=== PATIENT | female | born 1965 | race Caucasian/White ===

== ENCOUNTER 2017-10-05 07:30 | Inpatient (IN) | payer MEDICARE, MEDICAID ==
[~2017-10-05 07:30] MED LIST: Acetaminophen 500 MG Tab PO ONE; Albuterol/Ipratropium 3.0-0.5 MG/3 ML Neb Soln NEB ONE; Dextrose 5%-Lactated Ringers 1,000 ML IV SCH; ceFAZolin 2 GM in Sodium Chloride 0.9% 100 ML IV ONE; ceFAZolin 2 GM in Sodium Chloride 0.9% 50 ML IV ONE
[2017-10-13] MEDS ORDERED: ceFAZolin 2 GM in Premix Bag 1 BAG IV ONE (06:52)
[2017-10-13] MEDS ORDERED: Acetaminophen 1,000 MG in Premix Bag 1 BAG IV ONE (06:53)
[2017-10-13] MEDS ORDERED: Acetaminophen 500 MG Tab PO ONE (06:56)
[2017-10-13] MEDS ORDERED: Albuterol/Ipratropium 3.0-0.5 MG/3 ML Neb Soln NEB ONE (07:00)
[2017-10-13] MEDS ORDERED: Pregabalin 100 MG Cap PO SCH (07:00)
[2017-10-13] MEDS: Dextrose 5%-Lactated Ringers 1,000 ML IV SCH ×3 (07:56→22:37)
[2017-10-13] MEDS ORDERED: fentaNYL 250 MCG/5 ML SDV ONE ×2 (08:47→09:21)
[2017-10-13] MEDS ORDERED: Neostigmine Methylsulfate 1 MG/ML 5 ML Syringe ONE (08:48)
[2017-10-13] MEDS ORDERED: Propofol 200 MG/20 ML SDV ONE (08:48)
[2017-10-13] MEDS ORDERED: Rocuronium 50 MG/5 ML Vial ONE (08:48)
[2017-10-13] MEDS ORDERED: Ondansetron 4 MG/2 ML SDV ONE (08:48)
[2017-10-13] MEDS ORDERED: Dexamethasone 4 MG/ML SDV ONE (08:48)
[2017-10-13] MEDS ORDERED: Glycopyrrolate 0.2 MG/ML 5 ML MDV ONE (08:48)
[2017-10-13] MEDS ORDERED: Linezolid 200 MG/100 ML Bag IRR ONE (09:23)
[2017-10-13] MEDS ORDERED: Ketorolac 60 MG/2 ML SDV ONE (10:43)
[2017-10-13] MEDS ORDERED: Acetaminophen/oxyCODONE 325-5 MG Tab PO PRN (11:18)
[2017-10-13] MEDS ORDERED: Albuterol 8 GM Inhaler INH PRN (11:52)
[2017-10-13] MEDS ORDERED: Ondansetron 4 MG/2 ML SDV IVPUSH PRN (11:53)
[2017-10-13] MEDS ORDERED: Naloxone 0.4 MG/ML SDV IV PRN (11:57)
[2017-10-13] MEDS ORDERED: HYDROmorphone/Normal Saline 15 MG/30 ML PCA IV PRN (11:57)
[2017-10-13] MEDS: Sertraline 50 MG Tab PO SCH (12:42)
[2017-10-13] MEDS: Anastrozole 1 MG Tab PO SCH (12:43)
[2017-10-13] MEDS: tiZANidine 4 MG Tab PO SCH ×2 (13:35→21:02)
[2017-10-13] MEDS: ceFAZolin 2 GM in Premix Bag 1 BAG IV SCH ×2 (14:30→21:02)
[2017-10-13] MEDS ORDERED: Bisacodyl 5 MG Tab PO SCH (21:00)
[2017-10-13] MEDS: Formoterol/Mometasone 200-5 MCG 8.8 GM Inhaler IH SCH (21:02)
[2017-10-13] MEDS: Montelukast 10 MG Tab PO SCH (21:02)
[2017-10-13] MEDS: Pregabalin 100 MG Cap PO SCH (21:02)
[2017-10-14] MEDS: ceFAZolin 2 GM in Premix Bag 1 BAG IV SCH (05:40)
[2017-10-14] MEDS ORDERED: Fluticasone Propionate Nasal Spray 16 GM Bottle NAS PRN ×2 (07:20→07:52)
[2017-10-14] MEDS ORDERED: Albuterol 8 GM Inhaler INH PRN (07:20)
[2017-10-14] MEDS ORDERED: Triamcinolone Acetonide 0.1% Crm 15 GM Tube TOP PRN (07:20)
[2017-10-14] MEDS ORDERED: diphenhydrAMINE 25 MG Cap PO PRN (07:20)
[2017-10-14] MEDS ORDERED: Prochlorperazine 10 MG Tab PO PRN (07:20)
[2017-10-14] MEDS ORDERED: Hydrocortisone 1% Crm 30 GM Tube TOP PRN (07:20)
[2017-10-14] MEDS: Formoterol/Mometasone 200-5 MCG 8.8 GM Inhaler IH SCH ×2 (07:34→20:07)
[2017-10-14] MEDS: Aspirin 81 MG Tab.EC PO SCH (08:21)
[2017-10-14] MEDS: tiZANidine 4 MG Tab PO SCH ×3 (08:21→20:10)
[2017-10-14] MEDS: HYDROmorphone 2 MG Tab PO PRN ×4 (08:21→23:22)
[2017-10-14] MEDS: Anastrozole 1 MG Tab PO SCH (08:21)
[2017-10-14] MEDS: Acetaminophen 500 MG Tab PO SCH ×3 (08:25→20:09)
[2017-10-14] MEDS: Cholecalciferol (Vitamin D3) 1,000 Unit Tab PO SCH ×2 (08:25→20:10)
[2017-10-14] MEDS: Multivitamins with Iron/Calcium/Folic Acid/Minerals Tab PO SCH (08:26)
[2017-10-14] MEDS: Sertraline 50 MG Tab PO SCH (08:28)
[2017-10-14] MEDS: Pregabalin 100 MG Cap PO SCH ×3 (08:30→21:31)
--- NOTE | 2017-10-14 08:46 | PN ---
DATE OF SERVICE: 10/14/2017 SUBJECTIVE: Milly is postop day #1. She did have difficulty with pain control. She was started on a LITERACY TEACHER, and she reported dizziness and lightheadedness when getting up. She also reports having generalized itching, which is not new for her and would like her Benadryl reordered as well as her other home medications. Last BM was several days ago. She routinely takes Dulcolax tabs and MiraLAX 17 g. Vital signs have been stable. LEX drain on the right put out 45 mL of a light red drainage and LEX drain on the left put out 40 mL of a light pink drainage. REVIEW OF SYSTEMS: Remainder of review of systems negative for any pertinent positives and negatives. OBJECTIVE: GENERAL: Milly Nagy is a 52-year-old female. VITAL SIGNS: TPR is 98.1, 70, 18, blood pressure 115/69. HEENT: Negative. NECK: Supple. HEART: Regular rate and rhythm. LUNGS: Clear. Dressings were removed. There is no hematoma noted at staple line. She does have quite a bit in the way of axillary swelling in the left. She states that is normal and she normally wears compression sleeves bilaterally. ABDOMEN: Negative. EXTREMITIES: Without peripheral edema. ASSESSMENT: Resection and revision of bilateral painful deformed mastectomy scars, 28 cm on the right and 28 cm on the left. PLAN: 1. Change the patient's status to inpatient for pain control. 2. Discontinue LITERACY TEACHER. 3. Discontinue Percocet. 4. Discontinue continuous pulse ox. 5. Dilaudid 2 mg 1 to 2 every 4 hours p.r.n. pain; aspirin 81 mg p.o. daily; Lipitor 40 mg at bedtime; Dulcolax 5 mg tablets, take 2 b.i.d.; vitamin D3 1000 international units 1 p.o. b.i.d.; calcium with vitamin D3, B6, FA, B12 one b.i.d.; Benadryl 25 mg take 25 to 50 p.o. q.i.d. p.r.n. itching; Flonase 9.9 mL 2 sprays in each nostril daily p.r.n.; Advair 500/50 one puff inhalation b.i.d.; hydrocortisone 1% cream one applicator topical b.i.d. p.r.n. affected area; Singulair 10 mg p.o. daily; multivitamin one p.o. daily; MiraLAX 17 g p.o. daily p.r.n., give 85 mg today; Lyrica 100 mg p.o. t.i.d.; Compazine 10 mg q.6 hours p.r.n.; sertraline/Zoloft 150 mg p.o. daily; Tizanidine 8 mg p.o. t.i.d.; and triamcinolone acetonide 0.1% cream one topical t.i.d. 6. Good pulmonary toilet. 7. Dressing is already off. She may shower. 8. We will evaluate p.r.n. or in a.m. Elivra Rock PA-C /[id number]
[2017-10-14] MEDS ORDERED: Montelukast 10 MG Tab PO SCH (09:00)
[2017-10-14] MEDS ORDERED: SERTRALINE 150 MG PO SCH (09:00)
[2017-10-14] MEDS ORDERED: Polyethylene Glycol 3350 Powder 17 GM Packet PO ONE (09:00)
[2017-10-14] MEDS ORDERED: tiZANidine 4 MG Tab PO SCH (09:00)
[2017-10-14] MEDS ORDERED: Aspirin 81 MG Tab.EC PO SCH (09:00)
[2017-10-14] MEDS ORDERED: Pregabalin 50 MG Cap PO SCH (09:00)
[2017-10-14] MEDS ORDERED: Non-Formulary Medication 1 Each (Fluticasone/Salmeterol [Advair 500-50] 1 PUFF) INH SCH (09:00)
[2017-10-14] MEDS: Dextrose 5%-Lactated Ringers 1,000 ML IV SCH (09:24)
[2017-10-14] MEDS: [UNRECOGNIZED DRUG - REMARK] PO SCH ×2 (11:25→20:12)
[2017-10-14] MEDS ORDERED: Pregabalin 100 MG Cap PO SCH (14:00)
[2017-10-14] MEDS: hydrOXYzine HCl 100 MG/2 ML SDV IM PRN ×2 (15:55→21:32)
[2017-10-14] MEDS: Montelukast 10 MG Tab PO SCH (20:10)
[2017-10-14] MEDS ORDERED: atorvaSTATin 20 MG Tab PO SCH (21:00)
[2017-10-15] MEDS: HYDROmorphone 2 MG Tab PO PRN ×2 (03:25→07:29)
[2017-10-15] MEDS: Formoterol/Mometasone 200-5 MCG 8.8 GM Inhaler IH SCH (07:43)
[2017-10-15] MEDS: Anastrozole 1 MG Tab PO SCH (08:05)
[2017-10-15] MEDS: Multivitamins with Iron/Calcium/Folic Acid/Minerals Tab PO SCH (08:06)
[2017-10-15] MEDS: tiZANidine 4 MG Tab PO SCH (08:06)
[2017-10-15] MEDS: Acetaminophen 500 MG Tab PO SCH (08:06)
[2017-10-15] MEDS: Aspirin 81 MG Tab.EC PO SCH (08:06)
[2017-10-15] MEDS: Cholecalciferol (Vitamin D3) 1,000 Unit Tab PO SCH (08:06)
[2017-10-15] MEDS: Sertraline 50 MG Tab PO SCH (08:06)
[2017-10-15] MEDS: [UNRECOGNIZED DRUG - REMARK] PO SCH (08:07)
[2017-10-15] MEDS: Pregabalin 100 MG Cap PO SCH (08:14)
--- NOTE | 2017-10-16 03:34 | DISCH ---
ADMISSION DIAGNOSES: Scar tissue, bilateral mastectomy incisions, left breast cancer, asthma, chronic obstructive pulmonary disease, dyslipidemia, opiate dependence, palpitations, spinal stenosis, anxiety, depression, and allergic rhinitis. DISCHARGE DIAGNOSES: Resection revision of bilateral painful deformed mastectomy scars bilaterally both 28 cm. HISTORY: Milly Nagy is a 52-year-old female who had bilateral mastectomy for left breast cancer. She developed painful mastectomy scars. After preoperative evaluation and discussion of possible risks and possible complications, she wished to proceed with surgical procedure. HOSPITAL COURSE: Milly had her surgery on 10/12/2017. She had no operative complications. On postop day #1, she was changed from the TAR LEVELER to oral pain medication. Her activity was good. Vital signs were stable. Pain was well-managed and she was able to be discharged to home without any complications. PHYSICAL EXAMINATION: GENERAL: Milly Nagy is a pleasant 52-year-old female alert and orientated. VITAL SIGNS: Height is 5 feet, 7 inches. Weight is 209 pounds. TPR is 96.3, 77, 16, blood pressure 142/85. HEENT: Negative. NECK: Supple. HEART: Regular rate and rhythm. LUNGS: Clear. BREASTS: Both incision sites look good. Sally intact. There is a little bit more swelling from previous lymphedema in the left axilla area. LEX drains are intact and draining a light red drainage of 65 on the right and 40 mL on the left. ABDOMEN: Soft, nontender. EXTREMITIES: Without peripheral edema. DISPOSITION: Discharged to home. CONDITION: Stable and improving. FOLLOWUP: Followup appointment with Murray Hua MD at [facility] on 10/21/2017 at 9:30 a.m. DISCHARGE MEDICATIONS: New prescriptions: 1. Dilaudid 2 mg 1 to 2 every 4 hours p.r.n. pain #50. 2. Tylenol Arthritis 1300 mg 3 times a day. 3. Ventolin inhaler 1 puff every 4 hours p.r.n. shortness of breath. 4. Arimidex 1 mg oral daily. 5. Aspirin 81 mg oral daily. 6. Dulcolax 10 mg oral twice daily. 7. Calcium with vitamin D one twice daily. 8. Vitamin D3 1000 international units daily. 9. Flonase 2 sprays in each nostril daily for allergies. 10.Advair 500/50 one puff twice daily. 11.Hydrocortisone cream applied twice daily as needed for itching. 12.Singulair 10 mg oral daily. 13.Multivitamin 1 tablet daily. 14.MiraLAX 17 g oral daily. 15.Lyrica 100 mg oral 3 times a day. 16.Compazine 10 mg oral every 6 hours p.r.n. nausea. 17.Sertraline 150 mg oral daily. 18.Triamcinolone cream 0.1% cream apply 3 times a day for rash. 19.Lipitor 40 mg at bedtime. 20.Benadryl 25 to 50 mg oral 4 times a day. 21.Tizanidine 8 mg oral 3 times daily. DISCHARGE DIET: Usual diet as tolerated. Drink 8 to 10 glasses of water a day. ACTIVITY: No lifting greater than 10 pounds for 6 weeks[address]riving, do not drive on pain medication. May shower. Keep site clean and dry. Notify provider if any fever, increased pain, swelling, redness, drainage, nausea, or vomiting. SPECIAL INSTRUCTIONS: 1. Use incentive spirometer 10 times every hour while awake for 1 week. 2. Strip, empty, measure, and record LEX drains 4 times a day and when half-full bring record of LEX drainage to clinic appointment.
--- NOTE | 2017-10-18 15:00 | OR ---
DATE OF PROCEDURE: 10/13/2017 PREOPERATIVE DIAGNOSES: 1. Bilateral painful deformed mastectomy incisions. 2. Mass effect over central aspect of left mastectomy incision. POSTOPERATIVE DIAGNOSES: 1. Bilateral painful deformed mastectomy incisions. 2. Mass effect over central aspect of left mastectomy incision. OPERATIVE PROCEDURE: 1. Resection of painful deformed mastectomy incision of right chest wall with layered closure (02043, [id number]). 2. Resection of painful deformed mastectomy scar including underlying mass effect involving the skin and subcutaneous tissue and musculature, left mastectomy incision (05338). ANESTHESIA: General. FPGA DESIGN ENGINEER: Elvira Rock PA-C. INDICATIONS FOR PROCEDURE: This is a 52-year-old status post bilateral mastectomies. The mastectomy on the right side was prophylactic. On the left side, the patient had local regionally advanced disease and received postop chemotherapy and radiation treatment. Both incisions are quite deformed and painful associated with contractures on the left side in the central aspect of this area. There was also a mass effect and excision of this is to be obtained to rule out any recurrent disease as well as alleviating problems with the painful deformed incision. Potential risks of procedure including bleeding, infection, further cosmetic problems over time were all reviewed, and the patient wishes to proceed. DETAILS OF PROCEDURE: The patient was taken to the operating room and placed in a supine position. After general endotracheal anesthesia was induced, the chest wall and axilla were prepped and draped bilaterally. Beginning on the right side, a transversely oriented elliptical incision incorporating the underlying incision was made. This was done where there would be adequate subcutaneous tissue for closure. This was carried down through the skin and subcutaneous tissue, then reflected off the pectoralis major muscle for the length of incision. Once hemostasis was obtained, a 7-Hungarian [place]-Nichole drain was placed through a stab wound along the medial aspect of the incision and the incision then closed with layers of 3-0 and 4-0 Vicryl stitch deep and nicanor for the skin. This incision and closure measured at 28 cm in length. Attention was then taken to the left side. A similar elliptical incision was made. This was oriented somewhat differently and higher than the right side based on the location of the areas of the traction. This was carried down through the skin and subcutaneous tissue and included removal of the patient's tattoo which was located medially along the chest wall as the wound reflected off the soft pectoralis major fascia, the area of the central masslike effect which appeared to be contracted fibrotic tissue likely related to both scarring and radiation treatment the patient received postoperatively was excised. This measured around 15 cm in length with the total incision being 28 cm similar to the right side. This excision included some of the attached underlying pectoralis major muscle and the specimen was then delivered from the field. Closure was then as per the right side with drain also being placed. The patient was taken to the recovery room in satisfactory condition. Physician orthodontic technician assistant, Elvira Rock, played an essential role in assisting in this case, helping to position the patient, retract structures as needed, as well as suturing and cutting sutures when indicated. Her presence improved the patient safety and decreased the operative time. Murray Hua MD /[id number]
== END 2017-10-15 08:30 | disposition home or self-care (01) | DRG 585 ==
LOC: EDSTATUS 07:30 → JP.SDS 10-13 05:37 → JP.SDSSCHI 10-13 05:37 → JP.2SS 10-13 10:45
PROVIDERS: ADMIT Surgery; ATTEND Surgery
PROC: 0HBVXZZ (ICD-10-PCS; principal; 2017-10-13)
DX: L90.5 Scar conditions and fibrosis of skin (principal); Z85.3 Personal history of malignant neoplasm of breast; Z92.21 Personal history of antineoplastic chemotherapy; Z90.13 Acquired absence of bilateral breasts and nipples; F17.210 Nicotine dependence, cigarettes, uncomplicated; G89.29 Other chronic pain; J44.9 Chronic obstructive pulmonary disease, unspecified; M54.9 Dorsalgia, unspecified; F11.21 Opioid dependence, in remission; F41.9 Anxiety disorder, unspecified; F32.9 Major depressive disorder, single episode, unspecified; K59.00 Constipation, unspecified; E78.5 Hyperlipidemia, unspecified; Z79.82 Long term (current) use of aspirin; M48.00 Spinal stenosis, site unspecified; Z92.3 Personal history of irradiation
CPT/HCPCS: 88304; 94640-76; 94762; A9270-GY; J0690; J1100; J1170; J1885; J2020; J2405; J2704; J2710; J3010; J3410; J7042; J7620

== ENCOUNTER 2017-10-17 10:25 | Emergency (ER) | payer MEDICARE, MEDICAID ==
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
== END 2017-10-17 11:35 | disposition home or self-care (01) ==
LOC: JP.ED 10:25
DX: Z48.01 Encounter for change or removal of surgical wound dressing (principal); F17.210 Nicotine dependence, cigarettes, uncomplicated; J44.9 Chronic obstructive pulmonary disease, unspecified; E78.00 Pure hypercholesterolemia, unspecified; Z79.899 Other long term (current) drug therapy; Z79.82 Long term (current) use of aspirin; Z91.09 Other allergy status, other than to drugs and biological substances
CPT/HCPCS: 99282; 99283

== ENCOUNTER 2017-11-20 10:15 | Inpatient (IN) | payer MEDICARE, MEDICAID ==
[2017-11-20] MEDS ORDERED: Bupivacaine 0.5% 50 ML MDV ONE (10:46)
[2017-11-20] MEDS ORDERED: Lidocaine 1% with EPINEPHrine 1:100,000 50 ML MDV ONE (10:46)
[2017-11-20] MEDS: Dextrose 5%-Lactated Ringers 1,000 ML IV SCH ×2 (11:26→20:43)
[2017-11-20] MEDS ORDERED: fentaNYL 250 MCG/5 ML SDV ONE (11:34)
[2017-11-20] MEDS ORDERED: Midazolam 1 MG/ML 2 ML SDV ONE (11:34)
[2017-11-20] MEDS ORDERED: Rocuronium 50 MG/5 ML Vial ONE (11:35)
[2017-11-20] MEDS ORDERED: Dexamethasone 4 MG/ML SDV ONE (11:35)
[2017-11-20] MEDS ORDERED: Succinylcholine 200 MG/10 ML MDV ONE (11:35)
[2017-11-20] MEDS ORDERED: Ondansetron 4 MG/2 ML SDV ONE (11:35)
[2017-11-20] MEDS ORDERED: Propofol 200 MG/20 ML SDV ONE (11:35)
[2017-11-20] MEDS ORDERED: Clindamycin Phosphate 900 MG in Sodium Chloride 0.9% 100 ML IV ONE (12:00)
[2017-11-20] MEDS ORDERED: Albuterol/Ipratropium 3.0-0.5 MG/3 ML Neb Soln NEB ONE (12:00)
[2017-11-20] MEDS ORDERED: Lidocaine 4% Top Soln LTA 4 ML SYRINGE ONE (12:03)
[2017-11-20] MEDS ORDERED: Naloxone 0.4 MG/ML SDV IV PRN (12:28)
[2017-11-20] MEDS ORDERED: Glycopyrrolate 0.2 MG/ML 5 ML MDV ONE (12:29)
[2017-11-20] MEDS ORDERED: Neostigmine Methylsulfate 1 MG/ML 5 ML Syringe ONE (12:29)
[2017-11-20] MEDS ORDERED: Albuterol/Ipratropium 3.0-0.5 MG/3 ML Neb Soln INH PRN (14:10)
[2017-11-20] MEDS ORDERED: Ondansetron 4 MG/2 ML SDV IVPUSH PRN (14:11)
[2017-11-20] MEDS: HYDROmorphone/Normal Saline 15 MG/30 ML PCA IV PRN (14:17)
[2017-11-20] MEDS: Pregabalin 100 MG Cap PO SCH ×2 (15:23→20:58)
[2017-11-20] MEDS: tiZANidine 4 MG Tab PO SCH ×2 (15:23→20:58)
[2017-11-20] MEDS: Sertraline 50 MG Tab PO SCH (15:24)
[2017-11-20] MEDS: Albuterol/Ipratropium 3.0-0.5 MG/3 ML Neb Soln INH SCH ×2 (15:49→20:58)
[2017-11-20] MEDS ORDERED: Polyethylene Glycol 3350 Powder 17 GM Packet PO PRN (16:12)
[2017-11-20] MEDS: Bisacodyl 5 MG Tab PO PRN (17:09)
[2017-11-20] MEDS: Clindamycin Phosphate 900 MG in Sodium Chloride 0.9% 100 ML IV SCH (20:57)
[2017-11-20] MEDS: Formoterol/Mometasone 200-5 MCG 8.8 GM Inhaler IH SCH (21:00)
[2017-11-20] MEDS: Montelukast 10 MG Tab PO SCH (21:02)
[2017-11-20] MEDS: atorvaSTATin 20 MG Tab PO SCH (21:02)
[2017-11-21] MEDS: HYDROmorphone/Normal Saline 15 MG/30 ML PCA IV PRN (04:14)
[2017-11-21] MEDS: Clindamycin Phosphate 900 MG in Sodium Chloride 0.9% 100 ML IV SCH ×3 (04:18→20:27)
[2017-11-21] MEDS: Dextrose 5%-Lactated Ringers 1,000 ML IV SCH (07:50)
[2017-11-21] MEDS: Pregabalin 100 MG Cap PO SCH ×3 (09:21→20:28)
[2017-11-21] MEDS: Anastrozole 1 MG Tab PO SCH (09:27)
[2017-11-21] MEDS: Sertraline 50 MG Tab PO SCH (09:27)
[2017-11-21] MEDS: tiZANidine 4 MG Tab PO SCH ×3 (09:27→20:28)
[2017-11-21] MEDS: Aspirin 81 MG Tab.EC PO SCH (09:30)
--- NOTE | 2017-11-21 09:34 | PN ---
DATE OF SERVICE: 11/21/2017 SUBJECTIVE: Milly is sitting up in the chair. Her pain is controlled with her CASE ADVOCATE. Her dressings are dry and intact. She has no questions or concerns. OBJECTIVE: GENERAL: Milly Nagy is a pleasant 52-year-old female. VITAL SIGNS: TPR is 98, 76, 16, and blood pressure 130/77. HEENT: Negative. NECK: Supple. HEART: Regular rate and rhythm. LUNGS: Clear. Dressing, left axilla area is dry and intact. EXTREMITIES: Without peripheral edema. ASSESSMENT: Drainage of left chest wound under intraoperative ultrasound. Operation date, 11/20/2017. PLAN: 1. Dressing off, march shower. 2. Dressing changes to be b.i.d. Pack open wound with dry 4x4s, place ABD over the top of the 4x4 packing, then secure with tape. This is to be done b.i.d. 3. Discontinue CASE ADVOCATE. 4. Discontinue continuous pulse ox. 5. Percocet 5/325 mg 1 to 2 q.4 hours p.r.n. pain. 6. Decrease IV to keep vein open. 7. We will evaluate p.r.n. or in a.m. 8. Home Health care will be set up when the patient goes home, for b.i.d. wound packing. Elvira Rock PA-C /[id number]
[2017-11-21] MEDS: Bisacodyl 5 MG Tab PO PRN (09:38)
[2017-11-21] MEDS: Albuterol/Ipratropium 3.0-0.5 MG/3 ML Neb Soln INH SCH ×4 (10:53→20:27)
[2017-11-21] MEDS ORDERED: Dextrose 5%-Lactated Ringers 1,000 ML IV SCH (11:30)
[2017-11-21] MEDS: Acetaminophen/oxyCODONE 325-5 MG Tab PO PRN ×3 (11:52→20:27)
[2017-11-21] MEDS: Formoterol/Mometasone 200-5 MCG 8.8 GM Inhaler IH SCH ×2 (18:53→20:26)
[2017-11-21] MEDS: Montelukast 10 MG Tab PO SCH (20:28)
[2017-11-21] MEDS: atorvaSTATin 20 MG Tab PO SCH (20:28)
[2017-11-22] MEDS: Acetaminophen/oxyCODONE 325-5 MG Tab PO PRN ×6 (01:37→22:47)
[2017-11-22] MEDS: Clindamycin Phosphate 900 MG in Sodium Chloride 0.9% 100 ML IV SCH ×3 (03:43→20:55)
[2017-11-22] MEDS: Formoterol/Mometasone 200-5 MCG 8.8 GM Inhaler IH SCH ×2 (07:31→20:55)
[2017-11-22] MEDS: Albuterol/Ipratropium 3.0-0.5 MG/3 ML Neb Soln INH SCH ×4 (07:31→20:56)
[2017-11-22] MEDS: Pregabalin 100 MG Cap PO SCH ×3 (08:33→20:56)
[2017-11-22] MEDS: tiZANidine 4 MG Tab PO SCH ×3 (08:33→20:56)
[2017-11-22] MEDS: Sertraline 50 MG Tab PO SCH (08:33)
[2017-11-22] MEDS: Aspirin 81 MG Tab.EC PO SCH (08:33)
[2017-11-22] MEDS: Anastrozole 1 MG Tab PO SCH (08:34)
--- NOTE | 2017-11-22 10:48 | PN ---
DATE OF SERVICE: 11/22/2017 SUBJECTIVE: Milly is postop day #2, her pain is controlled. She has had 4 loose stools. Nursing staff is checking a C. diff. REVIEW OF SYSTEMS: Remainder of review of systems is negative for any pertinent positives and negatives. OBJECTIVE: GENERAL: Milly Nagy is a 52-year-old female. VITAL SIGNS: TPR is 97.7, 73, 16, blood pressure 148/72. HEENT: Negative. NECK: Supple. HEART: Regular rate and rhythm. LUNGS: Clear. Left axilla dressing is dry and intact. Lungs reveal rhonchi with coughing, bases are clear, occasional wheezing. EXTREMITIES: Without peripheral edema. ASSESSMENT: Drainage of left chest wound under intraoperative ultrasound. Operation date 11/20/2014. PLAN: 1. We will plan discharge in a.m. 2. The patient is requesting home health care to help with dressing changes. 3. Nursing staff will instruct the patient and evaluate if the patient is able to do the dressing changes herself. We will evaluate p.r.n. or in a.m. Elvira Rock PA-C /[id number]
[2017-11-22] MEDS: atorvaSTATin 20 MG Tab PO SCH (20:56)
[2017-11-22] MEDS: Montelukast 10 MG Tab PO SCH (20:56)
[2017-11-23] MEDS: Acetaminophen/oxyCODONE 325-5 MG Tab PO PRN ×2 (03:31→07:45)
[2017-11-23] MEDS: Clindamycin Phosphate 900 MG in Sodium Chloride 0.9% 100 ML IV SCH (03:32)
[2017-11-23] MEDS: Formoterol/Mometasone 200-5 MCG 8.8 GM Inhaler IH SCH (08:03)
[2017-11-23] MEDS: Albuterol/Ipratropium 3.0-0.5 MG/3 ML Neb Soln INH SCH (08:04)
[2017-11-23] MEDS: Pregabalin 100 MG Cap PO SCH (08:11)
[2017-11-23] MEDS: Aspirin 81 MG Tab.EC PO SCH (08:12)
[2017-11-23] MEDS: Sertraline 50 MG Tab PO SCH (08:12)
[2017-11-23] MEDS: tiZANidine 4 MG Tab PO SCH (08:12)
[2017-11-23] MEDS: Anastrozole 1 MG Tab PO SCH (08:13)
--- NOTE | 2017-11-24 10:39 | OR ---
DATE OF PROCEDURE: 11/20/2017 PREOPERATIVE DIAGNOSIS: Persistent inflammation around chest wall seroma, status post chest wall radiotherapy. POSTOPERATIVE DIAGNOSIS: Persistent inflammation around chest wall seroma, status post chest wall radiotherapy. OPERATIVE PROCEDURE: Drainage of area of persistent inflammation and fluid collection over chest incision within bed of radiated tissue (). ANESTHESIA: General. INDICATIONS FOR PROCEDURE: This is a 52-year-old status post revision of a mastectomy incision. This was initially done bilaterally. On the right side, the patient had no postoperative problems. She has had persistent redness and inflammation in the chest wall on the left side. This side had received preoperative radiotherapy following her breast cancer diagnosis. The plan is to proceed with drainage of this area, as it would appear that most likely there is some undrained colonized fluid within the area contributing to the ongoing inflammation. Potential risks including bleeding, infection, likelihood of having significant open wound at the conclusion of the procedure were reviewed, and the patient wishes to proceed. DETAILS OF PROCEDURE: The patient was taken to the operating room and placed in supine position. After general endotracheal anesthesia was induced, the left arm was placed out on an arm-board. The area of the incision was then evaluated by ultrasound, and there did appear to be some patchy areas of fluid along the central two thirds of the incision. The area was then prepped and draped, and the area was then opened up over that region. There was some necrotic fibrinous material, which was more or less evacuated, along with the fluid. Cultures were obtained, and the plane of this was directly over the musculature, i.e. in a subfascial location, and the wound was then packed open with iodoform gauze. This would appear to be colonized wound, rather than an overt infection, based on the patient's overall clinical appearance, and upon completion of the drainage, I suspect this will likely heal satisfactorily by secondary approach, although likely somewhat slowly, due to the radiated nature of the underlying tissue. After dressing was applied, the patient was taken to the recovery room in satisfactory condition. Murray Hua MD /[id number]
--- NOTE | 2017-11-24 11:08 | DISCH ---
ADMISSION DIAGNOSES: Persistent inflammation around chest wall seroma, status post chest wall revision; left breast cancer; chronic obstructive pulmonary disease; asthma; chronic neck spasm; dyslipidemia; opioid dependence; status post radiation; spinal stenosis; anxiety and depression. DISCHARGE DIAGNOSIS: Drainage of persistent inflammation, chest wall seroma. Date of surgery, 11/20/2017. HISTORY: Milly Nagy had a scar revision of her mastectomy incisions following left breast cancer. She developed a seroma under the left incision. After preoperative evaluation and discussion of the possible risks and possible complications, she wished to proceed with surgical procedure. HOSPITAL COURSE: Milly had her surgery on 11/20/2017. She had no operative complications. On postop day #1, she was changed to oral pain medication. Her dressings were changed twice a day. She remained afebrile. Activity was good. Vital signs stable. Incision looks good, and pain was controlled. She was ready to be discharged on 11/23/2017. PHYSICAL EXAMINATION: GENERAL: Milly Nagy is a 52-year-old female. VITAL SIGNS: Height is 5 feet 6 inches, weight is 201 pounds. TPR is 98.5, 89, 18. Blood pressure 156/84. HEENT: Negative. NECK: Supple. HEART: Regular rate and rhythm. LUNGS: Clear. Left chest wall incision was unpacked, looks good, granulation occurring, no abnormal drainage or redness. EXTREMITIES: Without peripheral edema. DISPOSITION: Discharged to home. CONDITION: Stable and improving. FOLLOWUP APPOINTMENT: On 11/25/2017 at 11:00 a.m. with Murray Hua M.D., at [facility]. HOME MEDICATIONS: Percocet 5/325 mg 1 to 2 q.4 hours p.r.n. pain, #50, and Bactrim DS 1 b.i.d., #20. She is to resume her home medications: Tylenol Arthritis 1300 mg 3 times a day p.r.n., needs to taper this so she does not get too much Tylenol in a 24-hour period; Ventolin inhaler 1 puff every 4 hours p.r.n. shortness of breath; Arimidex 1 mg oral daily; aspirin 81 mg daily; Dulcolax 10 mg twice daily; calcium carbonate 1 twice daily; vitamin D3 1000 international units twice daily; Flonase 2 sprays in each nostril daily; Advair 1 puff inhalation twice a day; hydrocortisone 1% cream twice daily; Singulair 10 mg oral at bedtime; multivitamin 1 at bedtime; MiraLax 17 g oral daily; Lyrica 100 mg oral 3 times a day; triamcinolone acetonide 0.1% cream 1 applicator 3 times a day; Lipitor 40 mg oral at bedtime; Benadryl 25 to 50 mg 4 times a day as needed for facial swelling and itching; and tizanidine 8 mg oral 3 times a day. Discontinue taking Dilaudid. DIET: Usual diet as tolerated, regular. DISCHARGE INSTRUCTIONS: Notify provider if fever, increased pain, swelling, or redness. Keep site clean and dry. Change dressing on the left chest twice a day when you are able, right now have home healthcare nurse change it once a day right after you shower. Use incentive spirometer 10 times every hour while awake.
== END 2017-11-23 10:00 | disposition home health service (06) | DRG 920 ==
LOC: EDSTATUS 10:15 → JP.SDS 11:01 → JP.MS 11:01 → JP.2SS 12:48
PROVIDERS: ADMIT Surgery; ATTEND Surgery
PROC: 0W9800Z Drainage of Chest Wall with Drainage Device, Open Approach (ICD-10-PCS; principal; 2017-11-20)
DX: L76.34 Postprocedural seroma of skin and subcutaneous tissue following other procedure (principal); F11.20 Opioid dependence, uncomplicated; Z92.3 Personal history of irradiation; L08.89 Other specified local infections of the skin and subcutaneous tissue; Z85.3 Personal history of malignant neoplasm of breast; R19.7 Diarrhea, unspecified; F32.9 Major depressive disorder, single episode, unspecified; F41.9 Anxiety disorder, unspecified; Z79.82 Long term (current) use of aspirin
CPT/HCPCS: 36415; 76998; 80053; 83735; 84100; 85027; 87070; 87075; 87077; 87186; 87205; 94640; 94640-76; 94762; A9270-GY; J0330; J1100; J1170; J2250; J2405; J2704; J2710; J3010; J7030; J7042; J7620; S0077

== ENCOUNTER 2017-12-14 14:40 | Emergency (ER) | payer MEDICARE, MEDICAID ==
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
== END 2017-12-14 17:13 | disposition home or self-care (01) ==
LOC: JP.ED 14:40
DX: D72.829 Elevated white blood cell count, unspecified (principal); J44.9 Chronic obstructive pulmonary disease, unspecified; E78.00 Pure hypercholesterolemia, unspecified; F32.9 Major depressive disorder, single episode, unspecified; F41.9 Anxiety disorder, unspecified; F17.210 Nicotine dependence, cigarettes, uncomplicated; Z91.09 Other allergy status, other than to drugs and biological substances; Z79.82 Long term (current) use of aspirin; Z79.899 Other long term (current) drug therapy; Z90.10 Acquired absence of unspecified breast and nipple
CPT/HCPCS: 36415; 80053; 83605; 85025; 86140; 87040; 87804; 99283

== ENCOUNTER 2019-07-02 15:47 | Emergency (ER) | payer MEDICARE, MEDICAID ==
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
[2019-07-02] MEDS ORDERED: Sodium Chloride 0.9% 500 ML IV SCH (16:15)
[2019-07-02] MEDS ORDERED: Labetalol 100 MG/20 ML MDV IVPUSH ONE ×2 (16:21→16:31)
[2019-07-02] MEDS ORDERED: Labetalol 20 MG/4 ML Syringe ONE (16:26)
--- NOTE | 2019-07-02 16:30 | CRLCR ---
Indication: Shortness of breath. Technique: Single AP portable view of the chest was obtained. Comparison: March 21, 2014. Findings: Probable right lower lobe infiltrate and small right pleural effusion identified. The heart is borderline in size. No pneumothorax is identified. Surgical clips are identified in the left axilla. Impression: Right lower lobe infiltrate and small right pleural effusion. Dictated by Leonela Bedolla MD @ Jul 02 2019 4:27PM Signed by Dr. Leonela Bedolla @ Jul 02 2019 4:28PM
[2019-07-02] MEDS ORDERED: Ondansetron 4 MG/2 ML SDV IVPUSH ONE (17:00)
[2019-07-02] MEDS ORDERED: Albuterol/Ipratropium 3.0-0.5 MG/3 ML Neb Soln NEB ONE (17:01)
[2019-07-02] MEDS ORDERED: Ertapenem 1 GM in Sodium Chloride 0.9% 100 ML IV ONE (17:02)
== END 2019-07-02 17:25 | disposition other institution (70) ==
LOC: JP.ED 15:47
DX: I50.9 Heart failure, unspecified (principal); R06.03 Acute respiratory distress; E78.00 Pure hypercholesterolemia, unspecified; F41.9 Anxiety disorder, unspecified; F32.9 Major depressive disorder, single episode, unspecified; Z91.048 Other nonmedicinal substance allergy status; Z79.899 Other long term (current) drug therapy; Z79.82 Long term (current) use of aspirin
CPT/HCPCS: 36415; 71045; 80053; 83605; 84484; 85025; 85379; 87040; 94640; 96361; 96374; 96375; 99285; J1335; J2405; J3490; J7030; 93005; 93010; J7620-GY